=== PATIENT | male | born 1995 | race Caucasian/White ===

== ENCOUNTER 2022-12-13 05:27 | Outpatient (CLI) | payer BC ==
[~2022-12-13] VITALS: Ht 172.7 cm; Wt 103.2 kg
== END 2022-12-13 12:34 | disposition home or self-care (01) ==
LOC: EDBD → PREOP 05:27
PROVIDERS: ATTEND Otolaryngology Otolaryngology/Facial Plastic Surgery
DX: Z01.818 Encounter for other preprocedural examination (principal)

== ENCOUNTER 2022-12-20 07:25 | Day surgery (SDC) | payer BC ==
[2022-12-20] VITALS (12 sets, daily range): BP systolic 112–146; BP diastolic 60–85
[~2022-12-20] VITALS: Ht 172.2 cm; Wt 100.0 kg
[2022-12-20] MEDS ORDERED: LACTATED RINGERS 1,000 ML IV PRN (08:15)
[2022-12-20 08:24] LABS: BASOPHILS # (AUTO) 0.1 10^3/uL (0.0-0.1); BASOPHILS % (AUTO) 1 % (0-10); EOSINOPHILS # (AUTO) 0.1 10^3/uL (0.0-0.3); EOSINOPHILS % (AUTO) 1 % (0-10); HEMATOCRIT 45 % (40-54); HEMOGLOBIN 15.7 g/dL (13.3-17.7); LYMPHOCYTES % (AUTO) 32 % (12-44); MEAN CORPUSCULAR HEMOGLOBIN 34 pg (25-34); MEAN CORPUSCULAR HGB CONC 35 g/dL (32-36); MEAN CORPUSCULAR VOLUME 96 fL (80-99); MEAN PLATELET VOLUME 10.4 fL (9.0-12.2); MONOCYTES # (AUTO) 0.6 10^3/uL (0.0-1.0); MONOCYTES % (AUTO) 7 % (0-12); NEUTROPHILS # (AUTO) 5.4 10^3/uL (1.8-7.8); NEUTROPHILS % (AUTO) 58 % (42-75); PLATELET COUNT 279 10^3/uL (130-400); WHITE BLOOD COUNT 9.2 10^3/uL (4.3-11.0)
[2022-12-20] MEDS ORDERED: MIDAZOLAM INJ 2 MG/2 ML VIAL ONE (08:47)
[2022-12-20] MEDS ORDERED: fentaNYL INJECTION 100 MCG/2 ML VIAL ONE (08:47)
--- NOTE | 2022-12-20 08:57 | Progress Note-Pre Operative ---
Pre-Operative Progress Note Date of Available H&P: Dec 20, 2022 Date H&P Reviewed: Dec 20, 2022 Time H&P Reviewed: 08:30 History & Physical: H&P Reviewed, Patient Examed, No changes noted Changes from last HP none Pre-Operative Diagnosis: Rec Tons OKSANA DONALDSON MD Dec 20, 2022 08:57
--- NOTE | 2022-12-20 08:58 | Progress Note-Post Operative ---
Post-Operative Progess Note Surgeon (s)/Barge Master (s) Surgeon OKSANA DONALDSON MD Barge Master n/a Pre-Operative Diagnosis Rec Tons Post-Operative Diagnosis same Post-Op Procedure Note Date of Procedure: Dec 20, 2022 Name of Procedure Performed: Tonsillectomy Description & Findings Description and Findings: n/a Anesthesia Type get Estimated Blood Loss minimal Packing none. Specimen(s) collected/removed tonsils OKSANA DONALDSON MD Dec 20, 2022 08:58
[2022-12-20] MEDS ORDERED: oxyCODONE 5 MG/5 ML ORAL SOLN 5 ML UDC PO PRN (09:00)
[2022-12-20] MEDS ORDERED: NS IV 1000 ML 1,000 ML IV SCH (09:00)
[2022-12-20] MEDS ORDERED: ACETAMINOPHEN 325 MG/10.15 ML ORAL SOLN UDC PO PRN (09:00)
[2022-12-20] MEDS ORDERED: LIDOCAINE PF 2% 5 ML VIAL ONE (09:16)
[2022-12-20] MEDS ORDERED: ONDANSETRON 4 MG/2 ML (SDV) Z0FRAN ONE (09:16)
[2022-12-20] MEDS ORDERED: proPOfol 200 MG/20 ML (DIPRIVAN) VIAL IV ONE (09:16)
[2022-12-20] MEDS ORDERED: dexAMETHasone INJ 10 MG/ML 1 ML VIAL ONE (09:16)
[2022-12-20] MEDS ORDERED: ROCURONIUM 50 MG/5 ML (ZEMURON) VIAL IV ONE (09:16)
[2022-12-20] MEDS ORDERED: NEOSTIGMINE 1 MG/1ML 10 ML VIAL ONE (09:17)
[2022-12-20] MEDS ORDERED: GLYCOPYRROLATE INJ 0.2 MG/ML 2 ML VIAL ONE (09:17)
[2022-12-20] MEDS ORDERED: SEVOFLURANE (ULTANE) 15 ML INHAL SOLN ONE (09:20)
--- NOTE | 2022-12-20 09:36 | Anesthesia-General Post-Op ---
General Patient Condition Mental Status/LOC: Same as Preop Cardiovascular: Satisfactory Nausea/Vomiting: Absent Respiratory: Satisfactory Pain: Controlled Complications: Absent Post Op Complications Complications None Follow Up Care/Instructions Patient Instructions None needed. Anesthesia/Patient Condition Patient Condition Patient is doing well, no complaints, stable vital signs, no apparent adverse anesthesia problems. No complications reported per nursing. KENZIE DIAMOND CRNA Dec 20, 2022 09:36
[2022-12-20] MEDS ORDERED: morphine INJ 10 MG/ML 1ML (SYR OR VIAL) IVP ONE (09:45)
[2022-12-20] MEDS ORDERED: fentaNYL INJECTION 100 MCG/2 ML VIAL IVP ONE (09:45)
[2022-12-20] MEDS ORDERED: AZIT200S47 PO (10:46)
[2022-12-20] MEDS ORDERED: TETRACAINESUCKERS MT (10:46)
[2022-12-20] MEDS ORDERED: DEXAINTSOL PO (10:46)
[2022-12-20] MEDS ORDERED: OXYC5SOL19 PO (10:46)
== END 2022-12-20 12:15 | disposition home or self-care (01) ==
LOC: SDC 07:25 → EDBD 07:30 → SDC 12:15
PROVIDERS: ATTEND Otolaryngology Otolaryngology/Facial Plastic Surgery
DX: J35.01 Chronic tonsillitis (principal); J03.01 Acute recurrent streptococcal tonsillitis; A42.89 Other forms of actinomycosis; E66.9 Obesity, unspecified; F17.290 Nicotine dependence, other tobacco product, uncomplicated; Z68.33 Body mass index [BMI] 33.0-33.9, adult
CPT/HCPCS: 36415; 85025; 87081; 88304